=== PATIENT | female | born 1990 | race Caucasian/White ===

== ENCOUNTER → 2017-12-28 | Outpatient (CLI) | payer OTHER | LOC: HPND 07:32 | PROVIDERS: ATTEND Obstetrics & Gynecology | DX: O35.1XX0 Maternal care for (suspected) chromosomal abnormality in fetus, not applicable or unspecified (principal) | CPT/HCPCS: 76811 ==

== ENCOUNTER → 2018-01-25 | Outpatient (CLI) | payer OTHER | LOC: HPND 07:38 | PROVIDERS: ATTEND Obstetrics & Gynecology | DX: O35.8XX0 Maternal care for other (suspected) fetal abnormality and damage, not applicable or unspecified (principal) | CPT/HCPCS: 76816 ==

== ENCOUNTER 2018-04-29 19:03 | Inpatient (IN) ==
[2018-04-29 20:26] VITALS: TEMP 97.9
[2018-04-29 21:26] LABS: Baso # (Auto) 0.1 th/mm3 (0.0-0.2); Baso % (Auto) 0.6 % (0.0-2.0); Eos # (Auto) 0.1 th/mm3 (0.0-0.4); Eos % (Auto) 0.8 % (0.0-4.0); Hematocrit 33.9 % (35.0-46.0); Hemoglobin 11.1 gm/dL (11.6-15.3); Lymph # (Auto) 1.8 th/mm3 (1.0-4.8); Lymph % (Auto) 17.4 % (9.0-44.0); Mean Corpuscular HGB Conc 32.8 % (32.0-36.0); Mean Corpuscular Hemoglobin 25.3 pg (27.0-34.0); Mean Corpuscular Volume 77.2 fL (80.0-100.0); Mean Platelet Volume 8.8 fL (7.0-11.0); Mono # (Auto) 0.9 th/mm3 (0.0-0.9); Mono % (Auto) 8.7 % (0.0-8.0); Neut # (Auto) 7.4 th/mm3 (1.8-7.7); Neut % (Auto) 72.5 % (16.0-70.0); Platelet Count 273 th/mm3 (150-450); Red Cell Distribution Width 13.5 % (11.6-17.2); White Blood Count 10.1 th/mm3 (4.0-11.0)
[2018-04-29 21:29] LABS: Bilirubin,Urine Negative (Negative); Clarity,Urine Clear (Clear); Color,Urine Yellow (Yellw/Straw); Glucose,Urine (UA) Negative (Negative); Leukocyte Esterase,Urine Negative (Negative); Mucus,Urine Few /lpf (Occasional); Nitrite,Urine Negative (Negative); Specific Gravity,Urine 1.012 (1.002-1.035); Squamous Epithelial Cell,Urine 3 /hpf (0-5)
[2018-04-29] MEDS ORDERED: fentaNYL Citrate Inj 100 MCG/2 ML Ampul IV.PUSH PRN ×2 (21:44)
[2018-04-29] MEDS ORDERED: Naloxone Inj 0.4 MG/ML Vial IV.PUSH PRN (21:44)
[2018-04-29] MEDS ORDERED: Sodium Chlor 0.9% Inj 500 ML IV.SIG PRN (21:44)
[2018-04-29] MEDS ORDERED: Oxytocin 30 Units/500ml Premix 30 UNITS/500 ML BAG IV.SIG ONE (21:44)
[2018-04-29] MEDS ORDERED: Sod Chloride 0.9% Inj 1,000 ML IV.CONT PRN (21:44)
[2018-04-29] MEDS ORDERED: Citric Acid/Sodium Citrate Liq 30 ML UDC PO SCH (21:45)
[2018-04-29 21:56] LABS: Amphetamine Urine With Conf Neg (Neg); Benzodiazepine Urine With Conf Neg (Neg)
--- NOTE | 2018-04-30 09:06 | P.HPOB ---
History of Present Illness Primary Care Physician: NOT REQUIRED Chief Complaint: 40+ weeks scheduled for induction with light bleeding History of Present Illness: 27 yo mwf G1 with LMP 07/20/17 and EDC 04/26/18 at $0 6/7 weeks who came in with spotting. Kept for cervidil. Was long and closed per hospitalist. GFM No leaking. Irregular mild UCs No CARDOSO, N, V, or RUQT No GDM, HTN or PTL RH- and received rhogam GBS neg Weeks Gestation:: 41 Para: 0 : 1 - Inpatient Certification I certify that the inpatient services were ordered in accordance with Medicare regulations governing the order. This includes certification that hospital inpatient services are reasonable and necessary and in the case of services not specified as inpatient-only under 42 CFR 419.22(n), that they are appropriately provided as inpatient services in accordance to with the 2-midnight benchmark under 43 CFR 412.3(e) Estimated Total Length of Stay (Days): 4 Plans for Post Hospital Care: Home Review of Systems All other systems reviewed negative except as stated in HPI PMFSH - History History Provided By: Patient - Medical / Surgical Hx Neg / Unobtainable Medical Problems Denied: Yes Surgical History: No Previous Surgery - Tobacco History Smoking Status: Never smoker - Alcohol History How Often Do You Have a Drink Containing Alcohol: Never - Substance Use History Substance History: No History of Abuse - Travel History Recent Travel in the [place] Within the Last 8 Weeks: No Recent Travel Out of the Country Within the Last 8 Weeks: No - Immunization History Tetanus Immunization: Unable to Assess Hx Influenza Vaccine This Season: Yes Medications and Allergies Active Medications: Active Medications Citric Acid/Sodium Citrate (Sodium Citrate/Citric Acid Liq) 30 ml PO FRICKERTRON CHECKER [facility] Stop: 05/03/18 21:44 Fentanyl Citrate (Fentanyl Inj) 50 mcg IV.PUSH Q1H PRN PRN Reason: Pain Scale 3 - 5 Fentanyl Citrate (Fentanyl Inj) 100 mcg IV.PUSH Q1H PRN PRN Reason: PAIN SCALE 6 TO 10 Lactated Ringer's (Lr 1000 Ml Inj) 1,000 mls @ 125 mls/hr IV.CONT .Q8H [facility] Last Admin: 04/30/18 07:45 Dose: 125 mls/hr Sodium Chloride (Ns Inj) 500 mls @ 1,000 mls/hr IV.SIG UNSCH PRN PRN Reason: SEE LABEL COMMENTS Sodium Chloride (Ns Inj) 1,000 mls @ 100 mls/hr IV.CONT .Q10H PRN PRN Reason: SEE LABEL COMMENTS Lactated Ringer's (Lr 1000 Ml Inj) 1,000 mls @ 3,000 mls/hr IV.SIG UNSCH PRN PRN Reason: compromise or epidural Lidocaine HCl (Xylocaine 1% Inj) 0.1 ml I-DERMAL PRN PRN PRN Reason: For IV start Stop: 05/02/18 21:43 Lidocaine HCl (Xylocaine 1% Inj) 10 ml INFILTRATN PRN PRN PRN Reason: For episiotomy repair Stop: 05/01/18 21:43 Mineral Oil (Muri-Lube Oil) 10 ml TOPICAL PRN PRN PRN Reason: PRN perineal massage Naloxone HCl (Narcan Inj) 0.1 mg IV.PUSH Q2M PRN PRN Reason: for opiate reversal Ondansetron HCl (Zofran Inj) 4 mg IV.PUSH Q6H PRN PRN Reason: NAUSEA OR VOMITING Sodium Chloride (Ns Flush) 2 ml IV.FLUSH BID REBEKA Sodium Chloride (Ns Flush) 2 ml IV.FLUSH PRN PRN PRN Reason: FLUSH AFTER USING IV ACCESS Sodium Chloride (Ns Flush) 2 ml IV.FLUSH BID REBEKA Sodium Chloride (Ns Flush) 2 ml IV.FLUSH PRN PRN PRN Reason: FLUSH AFTER USING IV ACCESS Allergies Allergy/AdvReac Type Severity Reaction Status Date / Time magnesium Allergy Gastrointestinal Verified 04/29/18 20:20 Upset Exam Vital signs: Vital Signs 04/29/18 19:22 04/29/18 19:23 04/29/18 19:55 Temperature 97.9 F Pulse Rate 85 Respiratory Rate 16 16 Blood Pressure 127/83 04/29/18 20:19 04/29/18 22:55 04/30/18 05:43 Temperature 97.6 F 97.8 F Pulse Rate 84 Respiratory Rate 16 18 18 Blood Pressure 111/74 04/30/18 05:44 04/30/18 08:01 Temperature 98.0 F Pulse Rate 81 79 Respiratory Rate 17 Blood Pressure 120/70 122/74 Intake & Output 04/29/18 04/30/18 04/30/18 18:59 06:59 18:59 Intake Total 0 / 0 1000 / 1000 Balance 0 / 0 1000 / 1000 Weight 62.142 kg Intake: IV 0 / 0 1000 / 1000 LR 1000 mL Inj 1,000 ML @ 125 0 / 0 1000 / 1000 mls/hr IV.CONT .Q8H [facility] Rx#: [id number] - Constitutional no acute distress - Routine HEENT Exam Head: Present: normocephalic Eye: Present: EOMI ENT: Present: mucous membranes moist - Routine Neck Exam Present: supple - Routine Respiratory Exam Present: CTA bilaterally - Routine Cardiovascular Exam Present: RRR (cervix 1/80/-3 ), S1 (category 1), S2 (narrow arch noted and baby is not in the pelvis. ) Results - Labs CBC & Chem 7: 04/29/18 20:43 Labs: Laboratory Results - last 24 hr 04/29/18 04/29/18 04/29/18 20:00 20:00 20:43 WBC 10.1 RBC 4.40 Hgb 11.1 L Hct 33.9 L MCV 77.2 L MCH 25.3 L MCHC 32.8 RDW 13.5 Plt Count 273 MPV 8.8 Neut % (Auto) 72.5 H Lymph % (Auto) 17.4 Sawyer % (Auto) 8.7 H Eos % (Auto) 0.8 Baso % (Auto) 0.6 Neut # (Auto) 7.4 Lymph # (Auto) 1.8 Sawyer # (Auto) 0.9 Eos # (Auto) 0.1 Baso # (Auto) 0.1 WBC Differential . Differential Comment Auto diff final Urine Color Yellow Urine Clarity Clear Urine pH 5.0 Ur Specific Weir 1.012 Urine Protein Negative Urine Glucose (UA) Negative Urine Ketones Negative Urine Occult Blood Moderate H Urine Nitrate Negative Urine Bilirubin Negative Urine Urobilinogen Less than 2 Ur Leukocyte Esterase Negative Urine RBC Less than 1 Urine WBC 1 Ur Squamous Epith Cells 3 Urine Mucus Few H Micro UA Comment Culture not ind Urine Culture Comments Culture not ind Urine Opiates Screen Neg Ur Barbiturates Screen Neg Ur Amphetamine Screen Neg U Benzodiazepines Scrn Neg Urine Cocaine Screen Neg U Cannabinoids Screen Neg Blood Type 04/29/18 20:43 WBC RBC Hgb Hct MCV MCH MCHC RDW Plt Count MPV Neut % (Auto) Lymph % (Auto) Sawyer % (Auto) Eos % (Auto) Baso % (Auto) Neut # (Auto) Lymph # (Auto) Sawyer # (Auto) Eos # (Auto) Baso # (Auto) WBC Differential Differential Comment Urine Color Urine Clarity Urine pH Ur Specific Weir Urine Protein Urine Glucose (UA) Urine Ketones Urine Occult Blood Urine Nitrate Urine Bilirubin Urine Urobilinogen Ur Leukocyte Esterase Urine RBC Urine WBC Ur Squamous Epith Cells Urine Mucus Micro UA Comment Urine Culture Comments Urine Opiates Screen Ur Barbiturates Screen Ur Amphetamine Screen U Benzodiazepines Scrn Urine Cocaine Screen U Cannabinoids Screen Blood Type O Negative Group B Strep: Negative Caprini VTE Risk Assessment Caprini VTE Risk Assessment: No/Low Risk (score <= 1) Caprini Risk Assessment Model: Point Value = 1 Point Value = 2 Point Value = 3 Point Value = 5 Age 41-60 Minor surgery BMI > 25 kg/m2 Swollen legs Varicose veins or History of unexplained or recurrent spontaneous Oral contraceptives or hormone replacement Sepsis (< 1 month) Serious lung disease, including pneumonia (< 1 month) Abnormal pulmonary function Acute myocardial infarction Congestive heart failure (< 1 month) History of inflammatory bowel disease Medical patient at bed rest Age 61-74 Arthroscopic surgery Major open surgery (> 45 min) Laparoscopic surgery (> 45 min) Malignancy Confined to bed (> 72 hours) Immobilizing plaster cast Central venous access Age >= 75 History of VTE Family history of VTE Factor V Leiden Prothrombin [id number] Lupus anticoagulant Anticardiolipin antibodies Elevated serum homocysteine Heparin-induced thrombocytopenia Other congenital or acquired thrombophilia Stroke (< 1 month) Elective arthroplasty Hip, pelvis, or leg fracture Acute spinal cord injury (< 1 month) Prophylaxis Regimen: Total Risk Factor Score Risk Level Prophylaxis Regimen 0-1 Low Early ambulation 2 Moderate Order ONE of the following: *Sequential Compression Device (SCD) *Heparin 5000 units SQ BID 3-4 Higher Order ONE of the following medications: *Heparin 5000 units SQ TID *Enoxaparin/Lovenox 40 mg SQ daily (WT < 150 kg, CrCl > 30 mL/min) *Enoxaparin/Lovenox 30 mg SQ daily (WT < 150 kg, CrCl > 10-29 mL/min) *Enoxaparin/Lovenox 30 mg SQ BID (WT < 150 kg, CrCl > 30 mL/min) AND/OR *Sequential Compression Device (SCD) 5 or more Highest Order ONE of the following medications: *Heparin 5000 units SQ TID (Preferred with Epidurals) *Enoxaparin/Lovenox 40 mg SQ daily (WT < 150 kg, CrCl > 30 mL/min) *Enoxaparin/Lovenox 30 mg SQ daily (WT < 150 kg, CrCl > 10-29 mL/min) *Enoxaparin/Lovenox 30 mg SQ BID (WT < 150 kg, CrCl > 30 mL/min) AND *Sequential Compression Device (SCD) Assessment and Plan - Diagnosis (1) Unfavorable cervix in term Code(s): O34.40 - Maternal care for other abnormalities of cervix, unspecified trimester Status: Acute - Plan will give her breakfast shower oral cytotec concern over pelvis -- need to see descent birthing ball today
[2018-04-30] MEDS ORDERED: Phenylephrine/NS 1000 MCG/10ML Syringe IV.PUSH ONE (12:00)
--- NOTE | 2018-04-30 12:02 | P.OBLABOR ---
Subjective Interval history: After breakfast and shower, cytotec held for what appeared to be regular contractions with some subtle decels. Now better. cytotec 25 applied to cervix and arom Objective Vital Signs: Vital Signs - 8 hr 04/30/18 05:43 04/30/18 05:44 04/30/18 08:01 Temperature 97.8 F 98.0 F Pulse Rate 81 79 Respiratory Rate 18 17 Blood Pressure 120/70 122/74 04/30/18 09:16 04/30/18 09:17 04/30/18 11:02 Temperature 98.0 F 97.9 F Pulse Rate 88 Respiratory Rate 17 17 Blood Pressure 116/82 04/30/18 11:03 Temperature Pulse Rate 86 Respiratory Rate Blood Pressure 116/74 Objective: 1=/80/-2 but applied arom clear watch for lack of descent or issues pit and epidural as appropriate Patient Started Active Labor: No Medical Induction of Labor: Yes Artificial Rupture of Membrane: Yes Artificial ROM Date: 04/30/18 Artificial ROM Time: 12:00 Assessment and Plan - Diagnosis (1) Unfavorable cervix in term Code(s): O34.40 - Maternal care for other abnormalities of cervix, unspecified trimester Status: Acute - Plan will give her breakfast shower oral cytotec concern over pelvis -- need to see descent birthing ball today
[2018-04-30] MEDS ORDERED: Oxytocin 30 Units/500ml Premix 0 UNITS/0 ML BAG ONE (15:56)
[2018-04-30] MEDS ORDERED: Oxytocin 30 Units/500ml Premix 30 UNITS/500 ML BAG ONE ×2 (15:57→19:50)
[2018-04-30] MEDS ORDERED: Oxytocin 30 Units/500ml Premix 30 UNITS/500 ML BAG IV.SIG PRN ×3 (16:08→22:27)
[2018-04-30] MEDS ORDERED: Oxytocin 30 Units/500ml Premix 30 UNITS/500 ML BAG IV.SIG ONE (17:27)
[2018-04-30] MEDS ORDERED: Zolpidem Tartrate 5 MG Tablet PO PRN (17:27)
[2018-04-30] MEDS ORDERED: Senna/Docusate Sodium 8.6/50 MG Tablet PO PRN (17:27)
[2018-04-30] MEDS ORDERED: Simethicone 80 MG Chew Tablet PO PRN (17:27)
--- NOTE | 2018-04-30 17:27 | P.OBLABOR ---
Subjective Interval history: No descent or cervical change baby remains out of the pelvis strip not worrisome Ilsa does not want to keep going in the absence of descent Objective Vital Signs: Vital Signs - 8 hr 04/30/18 11:02 04/30/18 11:03 04/30/18 14:21 Temperature 97.9 F 98.2 F Pulse Rate 86 Respiratory Rate 17 17 Blood Pressure 116/74 04/30/18 14:22 04/30/18 16:03 04/30/18 17:06 Temperature Pulse Rate 71 83 76 Respiratory Rate Blood Pressure 110/65 115/71 119/77 Objective: Pelvic Exam: 1+/80/-3 cervix posterior baby anterior high and overriding symphisis -- not in the pelvic inlet no descent Patient Started Active Labor: Yes Medical Induction of Labor: Yes Artificial Rupture of Membrane: Yes Assessment and Plan - Diagnosis (1) Unfavorable cervix in term Code(s): O34.40 - Maternal care for other abnormalities of cervix, unspecified trimester Status: Acute - Plan will give her breakfast shower oral cytotec concern over pelvis -- need to see descent birthing ball today for section at 5pm
[2018-04-30] MEDS ORDERED: Morphine Sulfate PF Inj 5 MG/10 ML Ampul ONE (17:31)
--- NOTE | 2018-04-30 18:36 | P.OBDELI ---
Procedure Note - Pre Op Diagnosis (1) Failure of descent in labor, delivered, current hospitalization Performed by: Tiara Calvo MD Procedure: Primary Low Transverse Section Indication for Delivery: Other (narrow pelivc inlet) Informed Consent Obtained: For anesthesia, For procedure Confirmed Correct: Patient, Procedure, Site, Time-out taken Anesthesia: Spinal Medication Prior to Procedure: As documented in eMAR Monitoring During Procedure: Blood pressure monitoring, switch house operator, Pulse oximetry Urinary Catheter: Inserted using sterile technique, To dependent drainage Sterile Preparation: Duraprep, In usual fashion Position: Supine with wedge to right side - Operative Features Skin Incision: Pfannenstiel Uterine Incision: Low transverse w/knife / blunt ext Membranes Ruptured: Previously Presentation: Occiput posterior Status of Infant: Viable Placenta Delivered: Intact, Other (to mimedex) Medications: Antibiotics, Oxytocin Estimated blood loss (mL): 500 Procedure Tolerated: Well Maternal Condition: Stable Baby Condition: Stable - : Male ( 8 and 9 apgars 8 pounds 5 ounces infant was overrding the pubic symphysis and not entering the pelvic inlet)
[2018-04-30] MEDS: Ibuprofen 600 MG Tablet PO PRN (23:01)
[2018-05-01] MEDS: Ibuprofen 600 MG Tablet PO PRN ×3 (04:38→19:06)
--- NOTE | 2018-05-01 07:45 | P.PNOB ---
Subjective Post op day: 1 Interval history: doing well, Objective Vital Signs/I&O: Vital Signs 04/30/18 08:01 04/30/18 09:16 04/30/18 09:17 Temperature 98.0 F 98.0 F Pulse Rate 79 88 Respiratory Rate 17 17 Blood Pressure 122/74 116/82 04/30/18 11:02 04/30/18 11:03 04/30/18 14:21 Temperature 97.9 F 98.2 F Pulse Rate 86 Respiratory Rate 17 17 Blood Pressure 116/74 04/30/18 14:22 04/30/18 16:03 04/30/18 17:06 Temperature Pulse Rate 71 83 76 Respiratory Rate Blood Pressure 110/65 115/71 119/77 04/30/18 18:43 04/30/18 18:51 04/30/18 19:19 Temperature 97.8 F Pulse Rate 81 81 74 Respiratory Rate 20 16 20 Blood Pressure 119/83 115/86 112/65 04/30/18 19:35 04/30/18 19:45 04/30/18 20:00 Temperature Pulse Rate 66 75 81 Respiratory Rate 16 10 L 17 Blood Pressure 116/57 L 118/62 127/71 04/30/18 20:20 04/30/18 21:00 05/01/18 01:00 Temperature 98.0 F 98.0 F 98.1 F Pulse Rate 75 85 68 Respiratory Rate 20 16 14 Blood Pressure 118/73 117/68 110/67 05/01/18 04:00 Temperature 98.5 F Pulse Rate 77 Respiratory Rate 16 Blood Pressure 111/73 Intake & Output 04/30/18 05/01/18 05/01/18 18:59 06:59 18:59 Intake Total 1999 Balance 1999 Intake: IV 1999 LR 1000 mL Inj 1,000 ML @ 125 1999 mls/hr IV.CONT .Q8H [facility] Rx#: [id number] Result Diagrams: 04/29/18 20:43 Objective Remarks: GENERAL: Well-nourished, well-developed patient. CARDIOVASCULAR: Regular rate and rhythm without murmurs, gallops, or rubs. RESPIRATORY: Breath sounds equal bilaterally. No accessory muscle use. ABDOMEN/GI: Abdomen soft, non-tender, bowel sounds present. Incision: dressing Clean, dry and intact. Fundus: Firm, non-tender at umbilicus. GENITOURINARY: Light to moderate bleeding. EXTREMITIES: No cyanosis or edema, non-tender, without signs of DVT. Medications and IVs: Active Medications Citric Acid/Sodium Citrate (Sodium Citrate/Citric Acid Liq) 30 ml PO GIFT MANAGER [facility] Stop: 05/03/18 21:44 Last Admin: 04/30/18 17:26 Dose: 30 ml Diphtheria/Pertussis/Tetanus Vacc (Boostrix Vaccine Inj) 0.5 ml IM .ONCE ONE Stop: 05/01/18 16:01 Fentanyl Citrate (Fentanyl Inj) 50 mcg IV.PUSH Q1H PRN PRN Reason: Pain Scale 3 - 5 Fentanyl Citrate (Fentanyl Inj) 100 mcg IV.PUSH Q1H PRN PRN Reason: PAIN SCALE 6 TO 10 Lactated Ringer's (Lr 1000 Ml Inj) 1,000 mls @ 125 mls/hr IV.CONT .Q8H [facility] Last Admin: 04/30/18 15:11 Dose: 125 mls/hr Sodium Chloride (Ns Inj) 500 mls @ 1,000 mls/hr IV.SIG UNSCH PRN PRN Reason: SEE LABEL COMMENTS Sodium Chloride (Ns Inj) 1,000 mls @ 100 mls/hr IV.CONT .Q10H PRN PRN Reason: SEE LABEL COMMENTS Lactated Ringer's (Lr 1000 Ml Inj) 1,000 mls @ 3,000 mls/hr IV.SIG UNSCH PRN PRN Reason: compromise or epidural Oxytocin (Pitocin 30 Units/Ns 500 Ml Premix) 30 units in 500 mls @ 2 mls/hr IV.SIG TITRATE PRN; Protocol PRN Reason: For induction of labor Last Admin: 04/30/18 16:00 Dose: 2 milliunit/min, 2 mls/hr Lactated Ringer's (Lr 1000 Ml Inj) 1,000 mls @ 100 mls/hr IV.CONT .Q10H [facility] Stop: 05/01/18 18:26 Last Admin: 05/01/18 00:38 Dose: 100 mls/hr Oxytocin (Pitocin 30 Units/Ns 500 Ml Premix) 30 units in 500 mls @ 100 mls/hr IV.SIG PRN PRN PRN Reason: Heavy bleeding Stop: 05/01/18 22:26 Ibuprofen (Motrin) 600 mg PO Q6HR PRN PRN Reason: cramping Last Admin: 05/01/18 04:38 Dose: 600 mg Lidocaine HCl (Xylocaine 1% Inj) 0.1 ml I-DERMAL PRN PRN PRN Reason: For IV start Stop: 05/02/18 21:43 Lidocaine HCl (Xylocaine 1% Inj) 10 ml INFILTRATN PRN PRN PRN Reason: For episiotomy repair Stop: 05/01/18 21:43 Measles/Mumps/Rubella Vaccine Live (M-M-R Ii Vaccine Inj) 0.5 ml SQ .ONCE ONE Stop: 05/01/18 16:01 Mineral Oil (Muri-Lube Oil) 10 ml TOPICAL PRN PRN PRN Reason: PRN perineal massage Naloxone HCl (Narcan Inj) 0.1 mg IV.PUSH Q2M PRN PRN Reason: for opiate reversal Ondansetron HCl (Zofran Inj) 4 mg IV.PUSH Q6H PRN PRN Reason: NAUSEA OR VOMITING Last Admin: 04/30/18 09:20 Dose: 4 mg Ondansetron HCl (Zofran Inj) 4 mg IV.PUSH Q6H PRN PRN Reason: NAUSEA OR VOMITING Last Admin: 04/30/18 23:04 Dose: 4 mg Oxycodone/Acetaminophen (Percocet 5/325 Mg) 1 tab PO Q4H PRN PRN Reason: PAIN SCALE 3 TO 5 Oxycodone/Acetaminophen (Percocet 5/325 Mg) 2 tab PO Q4H PRN PRN Reason: PAIN SCALE 6 TO 10 Promethazine HCl (Phenergan) 25 mg PO Q4H PRN PRN Reason: NAUSEA OR VOMITING Senna/Docusate Sodium (Connie-Colace) 2 tab PO Q12H PRN PRN Reason: CONSTIPATION Simethicone (Mylicon Chew) 80 mg PO QID PRN PRN Reason: FLATULENCE Sodium Chloride (Ns Flush) 2 ml IV.FLUSH BID REBEKA Last Admin: 04/30/18 15:10 Dose: Not Given Sodium Chloride (Ns Flush) 2 ml IV.FLUSH PRN PRN PRN Reason: FLUSH AFTER USING IV ACCESS Sodium Chloride (Ns Flush) 2 ml IV.FLUSH BID REBEKA Sodium Chloride (Ns Flush) 2 ml IV.FLUSH PRN PRN PRN Reason: FLUSH AFTER USING IV ACCESS Zolpidem Tartrate (Ambien) 5 mg PO HS PRN PRN Reason: INSOMNIA Assessment and Plan - Diagnosis (1) Unfavorable cervix in term Code(s): O34.40 - Maternal care for other abnormalities of cervix, unspecified trimester Status: Acute (2) delivery delivered Code(s): O82 - Encounter for delivery without indication Status: Acute - Plan POD #1 s/p C/S for FTP doing well, pain controlled Discharge Planning: routine - Attending Attestation pt seen by me
--- NOTE | 2018-05-01 08:46 | MH ---
cc: Fide Griffith MD DATE OF ADMISSION: 04/29/2018 REASON FOR ADMISSION: She is being admitted on 04/30/2018 for induction of labor. HISTORY OF PRESENT ILLNESS: She is 27 years old, 1, para 0, intrauterine at 40 weeks and 4 days. care has been with [place] [facility], uncomplicated. GBS was negative. Quad screen was negative. On anatomy ultrasound, she had mild bilateral ventriculomegaly. She was seen by Maternal Medicine and this resolved. Blood type is O-negative. PAST OBSTETRICAL HISTORY: She is primigravid. PAST M1A1 [employer] HISTORY: She had colposcopy in 2010, colposcopy in 2014. Last Pap smear was normal in July of 2017. PAST MEDICAL HISTORY: She denies hypertension, diabetes, or asthma. SOCIAL HISTORY: She denies toxic habits. MEDICATIONS: She takes vitamins. ALLERGIES: SHE IS ALLERGIC TO MAGNESIUM. PHYSICAL EXAMINATION: VITAL SIGNS: Stable. She is afebrile. Blood pressure is 120/72. She is 137 pounds. HEAD, HEART, CHEST, LUNG EXAMS: Within normal limits. ABDOMEN: Soft, nontender, gravid. PELVIC EXAM: Cervix is 1 cm, 50% effaced, -3 station. EXTREMITIES: No edema, cyanosis, or clubbing. Nontender. ASSESSMENT AND PLAN: She is 27 years old, 1, para 0, intrauterine at 40 weeks and 4 days. She is being induced for postdates. Risks, benefits, alternatives of the Cervidil induction have been explained to the patient and all of her questions have been answered. MD ARTEM Yoo/ALESHA , 02:11 PM , 02:18 PM
[2018-05-01] MEDS: Acetaminophen 325 MG Tablet PO PRN ×3 (15:35→23:24)
[2018-05-01] MEDS ORDERED: Measles/Mumps/Rubella Vaccine Inj 0.5 ML Vial SQ ONE (16:00)
[2018-05-01] MEDS ORDERED: Diphtheria/Tetanus/Pertussis Vaccine Inj 0.5 ML Syringe IM ONE (16:00)
[2018-05-02] MEDS: Ibuprofen 600 MG Tablet PO PRN ×2 (01:19→07:51)
[2018-05-02] MEDS: Acetaminophen 325 MG Tablet PO PRN ×2 (07:52→12:55)
[2018-05-02 19:56] VITALS: BP 109/75; PULSE 93; RESP 20
== END 2018-05-02 18:09 | disposition home or self-care (01) ==
LOC: HOBED 19:03 → H2E 20:25 → H1EA 04-30 20:54
PROVIDERS: ADMIT Obstetrics & Gynecology; ATTEND Obstetrics & Gynecology